=== PATIENT | female | born 1995 | race Caucasian/White ===

== ENCOUNTER 2017-05-25 13:11 | Emergency (ER) | payer MEDICAID ==
[~2017-05-25] VITALS: Ht 162.6 cm; Wt 68.2 kg
[2017-05-25 16:02] VITALS: BP 100/65
== END 2017-05-25 17:36 | disposition home or self-care (01) ==
LOC: ER 14:35
DX: K13.0 Diseases of lips (principal)
CPT/HCPCS: 99283; Z7610